=== PATIENT | female | born 1960 | race Caucasian/White ===

== ENCOUNTER → 2020-09-04 | Outpatient (CLI) | payer BC ==
--- NOTE | 2020-09-04 13:18 | REP ---
INDICATION: SOB. COMPARISON: PA and lateral chest dated 06/20/2014. TECHNIQUE: Upright PA and lateral chest. FINDINGS: There are linear densities inferiorly in the right lung as an interval change. This could represent atelectasis or chronic fibro linear scarring. The lung moncada are otherwise clear. Cardiac size is normal. The aneta, mediastinum, and skeletal structures are unremarkable. IMPRESSION: Linear densities inferiorly in the right lung as an interval change, scarring versus atelectasis. <Electronically signed by Nathanael Solares > 09/04/20 [id number]
== END ==
LOC: M WUC 12:06
PROVIDERS: ATTEND Physician Assistant
DX: J98.4 Other disorders of lung (principal)

== ENCOUNTER 2020-09-20 20:17 | Emergency (ER) | payer BC ==
[~2020-09-20] VITALS: Ht 172.7 cm; Wt 73.5 kg
[2020-09-20] MEDS ORDERED: KETOROLAC 30 MG/ML 1ML VIAL IV ONE (21:05)
[2020-09-20] MEDS ORDERED: PANTOPRAZOLE 40MG VIAL (C9113 PER 1) IV ONE (21:05)
[2020-09-20] MEDS ORDERED: NS 1,000 ML IV SCH (21:05)
[2020-09-20 21:11] LABS: BASO % 0.2 % (0.0-1.0); EOS # 0.1 10^3/uL (0.0-0.5); EOS % 0.8 % (0.0-3.0); HEMATOCRIT 45.6 % (36.0-47.0); HEMOGLOBIN 14.8 g/dl (12.0-15.5); LYMPH # 1.8 10^3/uL (1.5-5.0); MEAN CORPUSCULAR HEMOGLOBIN 31.8 pg (27.0-33.0); MEAN CORPUSCULAR HGB CONC 32.5 g/dl (32.0-36.5); MEAN CORPUSCULAR VOLUME 98.1 fl (80.0-96.0); MONO % 6.7 % (2.0-8.0); NEUTROPHILS # 11.6 10^3/uL (1.5-8.5); NEUTROPHILS % 79.8 % (36.0-66.0); PLATELET COUNT, AUTOMATED 270 10^3/uL (150-450); RED BLOOD COUNT 4.65 10^6/uL (4.00-5.40); WHITE BLOOD COUNT 14.6 10^3/uL (4.0-10.0)
--- NOTE | 2020-09-20 21:38 | REPVR ---
PROCEDURE INFORMATION: Exam: CT Abdomen And Pelvis Without Contrast Exam date and time: 09/20/2020 9:08 PM Age: 60 years old Clinical indication: Abdominal pain; Localized; Left; Additional info: R/O calc TECHNIQUE: Imaging protocol: Computed tomography of the abdomen and pelvis without contrast. Radiation optimization: All CT scans at this facility use at least one of these dose optimization techniques: automated exposure control; mA and/or kV adjustment per patient size (includes targeted exams where dose is matched to clinical indication); or iterative reconstruction. COMPARISON: No relevant prior studies available. FINDINGS: Lungs: Peripheral infiltrates in the lower lobes bilaterally. Liver: Normal. No mass. Gallbladder and bile ducts: Normal. No calcified stones. No ductal dilation. Pancreas: Normal. No ductal dilation. Spleen: Normal. No splenomegaly. Adrenal glands: Normal. No mass. Kidneys and ureters: Normal. No hydronephrosis. Stomach and bowel: Unremarkable. No obstruction. No mucosal thickening. Appendix: No evidence of appendicitis. Intraperitoneal space: Unremarkable. No free air. No significant fluid collection. Vasculature: The aortoiliac vessels demonstrate mild atherosclerotic calcification. Lymph nodes: Unremarkable. No enlarged lymph nodes. Urinary bladder: Unremarkable as visualized. Reproductive: Unremarkable as visualized. Bones/joints: Unremarkable. No acute fracture. Soft tissues: Unremarkable. Other findings: Shallow levoscoliosis. IMPRESSION: 1. Peripheral infiltrates in the lower lobes bilaterally. 2. No acute intra-abdominal findings. Electronically signed by: Juanjose Schmid On 09/20/2020 21:39:08 PM
[2020-09-20 21:39] LABS: ALBUMIN 3.8 GM/DL (3.2-5.2); ALT/SGPT 19 U/L (12-78); BILIRUBIN,DIRECT 0.2 MG/DL (0.0-0.2); BILIRUBIN,TOTAL 0.6 MG/DL (0.2-1.0); BLOOD UREA NITROGEN 9 MG/DL (7-18); CALCIUM LEVEL 9.5 MG/DL (8.5-10.1); CARBON DIOXIDE LEVEL 27 MEQ/L (21-32); CHLORIDE LEVEL 101 MEQ/L (98-107); CREATININE FOR GFR 0.72 MG/DL (0.55-1.30); GLOMERULAR FILTRATION RATE > 60.0 (>51); GLUCOSE, FASTING 111 MG/DL (70-100); LIPASE 91 U/L (73-393); POTASSIUM SERUM 3.9 MEQ/L (3.5-5.1); SODIUM LEVEL 136 MEQ/L (136-145); TOTAL PROTEIN 7.5 GM/DL (6.4-8.2)
[2020-09-20] MEDS ORDERED: MOXIFLOXACIN 400 MG TAB PO ONE (21:50)
[2020-09-20] MEDS ORDERED: MOXI1TAB PO (21:54)
[2020-09-20] MEDS ORDERED: PROAAER10 INH (21:54)
[2020-09-21] VITALS: BP 108/68
--- NOTE | 2020-09-21 04:57 | ECGEPIP ---
[facility] - ED Test Date: 2020-09-20 Pat Name: MALACHI TYSON Department: Room: - Gender: Female Lion Tamer: Leyla WORKMAN : 1960 Requested By: ORION Coy Order Number: [id number] Reading MD: Fritz Harrison Measurements Intervals [place] Rate: 85 P: 57 IL: 172 QRS: 57 QRSD: 92 T: 56 QT: 376 QTc: 447 Interpretive Statements Normal sinus rhythm Incomplete right bundle branch block BASELINE ARTIFACT AFFECTS INTERPRETATION SIMILAR TO 06/20/14 Electronically Signed on 09-21-2020 4:56:43 EDT by Fritz Harrison
== END 2020-09-21 00:20 | disposition home or self-care (01) ==
LOC: M ED 20:17
DX: J18.8 Other pneumonia, unspecified organism (principal); R94.31 Abnormal electrocardiogram [ECG] [EKG]; F17.200 Nicotine dependence, unspecified, uncomplicated; Z88.0 Allergy status to penicillin; Z79.01 Long term (current) use of anticoagulants; Z79.51 Long term (current) use of inhaled steroids; Z79.899 Other long term (current) drug therapy
CPT/HCPCS: 36415; 74176; 80048; 80076; 83690; 85025; 93005; 96361; 96374; 96375; 99285; C9113; J1885

== ENCOUNTER 2020-09-23 08:56 | Observation (INO) | payer BC ==
[~2020-09-23] VITALS: Ht 172.7 cm; Wt 74.3 kg
[~2020-09-23 08:56] MED LIST: MOXI1TAB PO; PROAAER10 INH
[2020-09-23] MEDS ORDERED: CYCL-707 PO (09:07)
[2020-09-23] MEDS ORDERED: IBUP80TA PO (09:07)
[2020-09-23] MEDS ORDERED: ACETAMINOPHEN 500 MG TAB PO ONE (09:45)
[2020-09-23] MEDS ORDERED: ALBUTEROL 90 MCG/ACT 8GM HFA INHALER INH ONE (09:45)
[2020-09-23 10:34] LABS: BASO % 0.2 % (0.0-1.0); EOS # 0.1 10^3/uL (0.0-0.5); EOS % 0.9 % (0.0-3.0); HEMATOCRIT 44.3 % (36.0-47.0); HEMOGLOBIN 14.1 g/dl (12.0-15.5); LYMPH # 1.1 10^3/uL (1.5-5.0); LYMPH % 10.8 % (24.0-44.0); MEAN CORPUSCULAR HEMOGLOBIN 31.7 pg (27.0-33.0); MEAN CORPUSCULAR HGB CONC 31.8 g/dl (32.0-36.5); MEAN CORPUSCULAR VOLUME 99.6 fl (80.0-96.0); MONO # 0.7 10^3/uL (0.0-0.8); MONO % 6.4 % (2.0-8.0); NEUTROPHILS # 8.5 10^3/uL (1.5-8.5); NEUTROPHILS % 81.4 % (36.0-66.0); PLATELET COUNT, AUTOMATED 290 10^3/uL (150-450); RED BLOOD COUNT 4.45 10^6/uL (4.00-5.40); WHITE BLOOD COUNT 10.4 10^3/uL (4.0-10.0)
[2020-09-23 10:42] LABS: INR 1.16; PROTHROMBIN TIME 15.1 SECONDS (12.5-14.3)
[2020-09-23 10:43] LABS: PARTIAL THROMBOPLASTIN TIME 36.5 SECONDS (24.2-38.5)
[2020-09-23 11:01] LABS: ALBUMIN 3.4 GM/DL (3.2-5.2); ALT/SGPT 23 U/L (12-78); BILIRUBIN,DIRECT 0.2 MG/DL (0.0-0.2); BILIRUBIN,TOTAL 0.6 MG/DL (0.2-1.0); CK-MB VALUE MASS < 1.0 NG/ML (<3.6); CPK CREATINE PHOSPHOKINASE 46 U/L (26-192); MB/CK RELATIVE INDEX 2.17 (< OR =4); NT-PRO BNP 50 PG/ML (<125); TOTAL PROTEIN 7.3 GM/DL (6.4-8.2); TROPONIN I < 0.02 NG/ML (< 0.10)
[2020-09-23] MEDS ORDERED: ISOVUE-370 76% 100ML VIAL As Ordered ONE (11:01)
--- NOTE | 2020-09-23 12:20 | REP ---
INDICATION: pneumonia, hemoptysis, cough. COMPARISON: Comparison chest x-ray September 04, 2020. TECHNIQUE: Portable upright AP chest radiograph. FINDINGS: There is blunting of the left lateral pleural angle indicating small left pleural effusion. This is a new finding compared with the September 04, 2020 study. There is platelike atelectasis again noted in the right base essentially unchanged. There is no evidence of pneumothorax. No other infiltrate is seen. Heart is not enlarged. Pulmonary vasculature is not increased.. IMPRESSION: New blunting left lateral pleural angle indicating small left pleural pleural effusion. Platelike atelectasis right base again noted.. <Electronically signed by Monster Silva > 09/23/20 [id number]
--- NOTE | 2020-09-23 12:31 | REP ---
INDICATION: pleuritic cp, h/o pneumonia, hemoptysis. COMPARISON: Comparison chest CT study February 02, 2012.. TECHNIQUE: Contrast dose: 100 ML of Isovue [address] technique: Helical scanning is acquired and overlapping 1.5 mm and contiguous 3 mm axial images are reformatted. In addition, maximum intensity projection and multiplanar re-formation images are generated in sagittal and coronal imaging projections. FINDINGS: There is good opacification of the pulmonary arterial tree. There is a branching filling defect within the lumen of the left lower lobe pulmonary arterial tree consistent with pulmonary embolism. The filling defects are seen in the right lower lobe pulmonary artery branches as well. No central embolus is appreciated. The aorta enhances homogeneously. There is no evidence of aortic dissection or aneurysm. Normal adrenal glands are observed. The visualized upper abdominal structures are unremarkable. There is no evidence of hilar or mediastinal mass or adenopathy. Lung window settings demonstrate there are emphysematous changes in the upper lobes, right more so than left. There are extensive areas of atelectasis and consolidation in the lower lobes bilaterally, left greater than right. A very small amount of left pleural fluid is visible. Lung moncada are otherwise unremarkable. No bony destructive lesion is seen. IMPRESSION: The study is positive for bilateral lower lobe pulmonary emboli of moderate size. There is a small left pleural effusion and there is bibasilar atelectasis and infiltrate in the lower lobes. Emphysematous changes are seen in the upper lung zones.. <Electronically signed by Monster Silva > 09/23/20 [id number]
[2020-09-23] MEDS ORDERED: MOXI1TAB PO (13:20)
[2020-09-23] MEDS ORDERED: ALBU8.5H INH (13:23)
[2020-09-23] MEDS ORDERED: traMADol 50 MG TAB PO ONE (15:55)
--- NOTE | 2020-09-23 16:55 | REP ---
INDICATION: LLE u/l swelling in setting of hemoptysis COMPARISON: None TECHNIQUE: Bey scale and color Doppler evaluation using linear high frequency transducer. FINDINGS: Ultrasound examination of the left lower extremity deep venous structures from the common femoral vein to the popliteal vein demonstrates normal compressibility flow and wave patterns in response to respiration and augmentation. There is no evidence for deep venous thrombosis. IMPRESSION: No evidence for deep venous thrombosis. <Electronically signed by Madi Pena > 09/23/20 [id number]
[2020-09-23 18:10] VITALS: BP 124/77
[2020-09-23 19:00] VITALS: O2SAT 94
--- NOTE | 2020-09-23 19:08 | HPEPDOC ---
[facility] Medical History & Physical Date of Admission Sep 23, 2020 Date of Service: Sep 23, 2020 Attending Physician: INDIA FAIR MD History and Physical CHIEF COMPLAINT: L back pain and blood in sputum HISTORY OF PRESENT ILLNESS: Patient is a 60 y/o F with no known medical history (Patient has not seen primary care for the past 5 years), presenting to the ED c/o L sided back pain with blood in sputum. Per patient, her symptoms first started 3 weeks ago on 09/02 when patient woke up with acute onset of R back pain upon deep breathing. Patient rated pain 9/10 and described as gripping and stabbing. She was seen in urgent care and was dx with back pain. She was treated with an NSAID shot and sent home with cyclobenzaprine and ibuprofen (800mg). Her pain persisted, prompting her to return to urgent care on 09/04, in which a CXR was performed and showed "something brewing in the right lung". She was sent home with 5 days of prednisone and f/u with PCP. Her pain resolved with treatment and patient did not follow up with PCP. However on 09/20 (last Tuesday), patient woke up with another acute onset of L sided back pain with radiation to L flank that was similar in character and severity, prompting her to visit [facility] ED night of 09/20. She had an unremarkable EKG and her CT abd pelvis showed peripheral infiltrates in the lower lobes bilaterally. She was dx with with PNA, treated with IVF, moxifloxacin, ketorolac and pantoprazole, and was discharged on albuterol inhaler and moxifloxacin 400mg QD. Patient's pain persisted and was complicated with blood in sputum (small volume on tissue paper) 5pm on 09/22. Patient woke up this morning with 10/10 L sided back pain persistent blood in sputum, prompting patient to visit ED today. Patient denied recent sick contact, weightloss, recent long distance travel, recent periods of immobility, fever, chills, N/V/D, dizziness, palpitation, abd pain and urinary symptoms, but noted chronic cough with clear sputum, decreased appetite, and wor sening WILLSON after [address] since 09/20. Patient denied SOB at rest but reported inability to take deep breaths due to pain. Patient denied family hx of stroke or clotting disorder. She reported history of 1 spontaneous in 1984 at 6 wk gestation. While in the ED, patient's Trop, proBNP, thyroid panel were negative. However, her CTA chest showed "bilateral lower lobe pulmonary emboli of moderate size with small left pleural effusion and bibasilar atelectasis and infiltrate in the lower lobes. Emphysematous changes are seen in the upper lung zones." PAST MEDICAL HISTORY: 1. None reported PAST SURGICAL HISTORY: 1. L elbow surgery 2. R wrist surgery 3. Tubal ligation in 1993 4. Tonsillectomy- during childhood 5. 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 Tobacco use: Recently quit smoking due to bloody sputum on 09/22/2020, smoked cigarettes for 42 years with 1.5 ppd ETOH: Has not had a drink since 09/02, used to drink 4-5 12oz beer nightly Illicit drug use: None IV drug use: None FAMILY HISTORY: Father: Alive, CAD (s/p CABG and stent) Mother: Alive, COPD Siblings: 1 brother in good health Children: 1 son age 33 and 1 daughter age 26, both in good health ALLERGIES: Please see below. REVIEW OF SYSTEMS: CONSTITUTIONAL: Denies chills, fever, weakness, fatigue, unexpected weight change, but noted decreased appetite HEENT: Denies headaches, dizziness, vision changes, hearing changes or throat pain. CARDIOVASCULAR: Denies chest pain, palpitations, dyspnea on exertion, edema RESPIRATORY: Denies wheezing, hemoptysis but noted chronic cough, blood in sputum and dyspnea on exertion GASTROINTESTINAL: Denies nausea, vomiting, abdominal pain, diarrhea, constipation, melena, hematochezia GENITAOURINARY: Denies dysuria, hematuria, urinary frequency, incontinence or retention. SKIN: Denies skin changes, rash, lesions, jaundice, bruising MUSCULOSKELETAL: Denies weakness, muscle or joint pain. NEUROLOGICAL: Denies focal weakness, numbness, tingling, change in Speech HEMATOLOGICAL: Denies bruising, excessive bleeding, petechiae HOME MEDICATIONS: Please see below. PHYSICAL EXAMINATION: VITAL SIGNS: See below GENERAL APPEARANCE: Revealed 60 y/o F laying on ED cot with head of bed elevated, alert & oriented x3, in no acute distress. HEENT Exam: Normocephalic and atraumatic, PERRLA, conjunctiva & lids normal, EOMI, without sclera icteric, mucous membr. moist/pink, pharynx normal, nares patent. NECK: Supple without lymphadenopathy, JVD, thyromegaly LUNGS: Clear to auscultation bilaterally with full breath sounds without rales, wheezing. Faint bibasilar crackles noted. CARDIOVASCULAR: Regular rate and rhythm, distant heart sound with normal S1 & S2 without gallops, murmurs, rubs. ABDOMEN: Soft, non-tender, non-distended with normal bowel sounds. No masses or ecchymosis or hepatosplenomegaly. EXTREMITIES: 2+ pulses in all extremities. No clubbing, cyanosis, tenderness. 1+ pitting edema noted in LLE. SKIN: Normal turgor and temperature. No rash, lesion MUSCULOSKELETAL: Strength +5/5 in all extremities without tenderness. No back tenderness noted. NEUROLOGICAL: Normal gait and speech with intact sensation, cranial nerves III- XII normal, reflexes 2+, Babinski sign negative. PSYCHIATRIC: Normal mood and affect LABORATORY DATA: See below. IMAGIN. 09/23/2020 CT angio chest reported as: "The study is positive for bilateral lower lobe pulmonary emboli of moderate size. There is a small left pleural effusion and there is bibasilar atelectasis and infiltrate in the lower lobes. Emphysematous changes are seen in the upper lung zones." 2. 09/23/2020 portable chest CR reported as "New blunting left lateral pleural angle indicating small left pleural pleural effusion. Platelike atelectasis right base again noted." . 09/23/2020 duplex US Unilat left lower veins reported as "No evidence for deep venous thrombosis." MICROBIOLOGY: Please see below. ASSESSMENT: Patient is a 60 y/o F with no known medical history (Patient has not seen primary care for the past 5 years), presenting to the ED c/o L sided back pain with blood in sputum. While in the ED, patient's Trop, proBNP, thyroid panel were negative. However, her CTA chest showed "bilateral lower lobe pulmonary emboli of moderate size with small left pleural effusion and bibasilar atelectasis and infiltrate in the lower lobes. Emphysematous changes are seen in the upper lung zones." PO eliquis started at 10mg bid. Etiology of bilateral PE unclear and will require outpatient workup. Anticipate discharge tomorrow if pain is controlled. PLAN: 1. Bilateral PE, unprovoked - Etiology unclear - CTA chest showed "bilateral lower lobe pulmonary emboli of moderate size with small left pleural effusion and bibasilar atelectasis and infiltrate in the lower lobes. Emphysematous changes are seen in the upper lung zones." - hemodynamically stable - Start PO Eliquis 10mg BID for 7 days followed by 5mg bid afterwards - Pain control with Percocet - Cont Incentive Spirometry - Patient will require primary care screening for cancer as patient has not had primary care for the past 5 years - coagulopathy panel ordered and pending - Start pantoprazole for GI prophylaxis - LLE doppler ordered for swelling, results negative for DVT Hemoptysis - Reported small streaking - Will follow H&H trend 2. Bilateral PNA - CTA showed bibasilar atelectasis and infiltrate in the lower lobes - Patient currently on day 4 of moxifloxacin PO 400mg, cont moxifloxacin 3. Nicotine dependence - Patient quit smoking yesterday with 42 years of smoking 1.5 ppd. 4. DVT Prophylaxis: Patient on Eliquis for bilateral PE Disposition: Anticipate discharge tomorrow on Eliquis assuming patient's pain is controlled Code status: Full code Vital Signs Vital Signs Date Time Temp Pulse Resp B/P (MAP) Pulse Ox O2 Delivery O2 Flow Rate FiO2 09/23/20 17:06 16 09/23/20 17:01 98.6 88 95/64 (74) 95 Room Air Laboratory Data Labs 24H Laboratory Tests 2 09/23/20 10:20: Immature Granulocyte % (Auto) 0.3, Neutrophils (%) (Auto) 81.4H, Lymphocytes (%) (Auto) 10.8L, Monocytes (%) (Auto) 6.4, Eosinophils (%) (Auto) 0.9, Basophils (%) (Auto) 0.2, Neutrophils # (Auto) 8.5, Lymphocytes # (Auto) 1.1L, Monocytes # (Auto) 0.7, Eosinophils # (Auto) 0.1, Basophils # (Auto) 0.0, Nucleated Red Bloo d Cells % (auto) 0.0, Prothrombin Time 15.1H, Prothromb Time International Ratio 1.16, Activated Partial Thromboplast Time 36.5, Lactic Acid Level 0.9, Total Bilirubin 0.6, Direct Bilirubin 0.2, Aspartate Amino Transf (AST/SGOT) 18, Alanine Aminotransferase (ALT/SGPT) 23, Alkaline Phosphatase 152H, Total Creatine Kinase 46, Creatine Kinase MB < 1.0, Creatine Kinase MB Relative Index 2.17, Troponin I < 0.02, IK-Hqv-I-Type Natriuretic Peptide 50, Total Protein 7.3, Albumin 3.4, Albumin/Globulin Ratio 0.9L, Thyroid Stimulating Hormone (TSH) 1.820, Thyroxine (T4) 8.0 09/23/20 10:21: POC Glucose (Misc Panel) 112H, POC Sodium (Misc Panel) 138, POC Potassium (Misc Panel) 3.8, POC Chloride (Misc Panel) 99, POC Total CO2 (Misc Panel) 29.0H, POC Blood Urea Nitrogen (Misc Panel 8, POC Ionized Calcium (Misc Panel) 4.6, POC Creatinine (Misc Panel) 0.7, POC Hematocrit (Misc Panel) 45.0 09/23/20 15:09: TK-Ywa-U-Type Natriuretic Peptide 49 09/23/20 15:59: CBC/BMP Laboratory Tests 09/23/20 10:20 Microbiology Microbiology 09/23/20 Respiratory Virus Panel (PCR) ([facility]) - Final, Complete Home Medications Scheduled Cyclobenzaprine HCl (Cyclobenzaprine HCl) 10 Mg Tablet, 10 MG PO Q8H Ibuprofen (Ibuprofen) 800 Mg Tablet, 800 MG PO Q6H Moxifloxacin HCl (Moxifloxacin HCl) 400 Mg Tablet, 400 MG PO DAILY STARTED 09/21/20 FOR 10 DAYS Scheduled PRN Albuterol Sulfate (Albuterol Sulfate Hfa) 8.5 Gm Hfa.aer.ad, 2 PUFFS INH Q4-6HP PRN for SHORTNESS OF BREATH Allergies Coded Allergies: Penicillins (Verified Allergy, Unknown, 09/20/20) erythromycin base (Verified Allergy, Unknown, 09/20/20) A-FIB/CHADSVASC A-FIB History Current/History of A-Fib/PAF?: No Current PO Anticoag Therapy: No GME ATTESTATION GME ATTESTATION My faculty preceptor for this patient encounter was physically present during the encounter and was fully available. All aspects of the patient interview, examination, medical decision making process, and medical care plan development were reviewed and approved by the faculty preceptor. The faculty preceptor is aware and concurs with the plan as stated in the body of this note and will attest to such by his/her cosignature. ATTENDING NOTE I, India Fair, have independently examined this patient and performed my own physical exam, as well as reviewed the documentation and edited where necessary. I have discussed in detail with the resident / student the findings and plan of treatment as documented by the resident / student and edited their note. I agree with their findings and treatment plan and have edited their documentation. I will continue to follow the patient during this hospital stay. ARLENE LEIGH OMS-3 Sep 23, 2020 19:08 INDIA FAIR MD Sep 24, 2020 07:04
[2020-09-23 19:21] VITALS: BP 114/63
[2020-09-23 20:00] VITALS: O2SAT 93
[2020-09-23] MEDS: APIXABAN 5 MG TAB (ELIQUIS) PO SCH (20:09)
[2020-09-23] MEDS: ACETAMINOPHEN TAB 650MG DOSE (2X325MG) PO PRN (20:46)
[2020-09-23 21:00] VITALS: O2SAT 92
[2020-09-23 22:00] VITALS: O2SAT 90
[2020-09-23] MEDS: traMADol 50 MG TAB PO PRN (22:37)
[2020-09-24] VITALS: BP 98/60
[2020-09-24 00:20] VITALS: O2SAT 93
[2020-09-24] MEDS: ACETAMINOPHEN TAB 650MG DOSE (2X325MG) PO PRN (01:11)
[2020-09-24 04:00] VITALS: BP 97/57
[2020-09-24 04:50] VITALS: O2SAT 92
[2020-09-24] MEDS: traMADol 50 MG TAB PO PRN (05:06)
[2020-09-24] MEDS ORDERED: MOXIFLOXACIN 400 MG TAB PO SCH (06:00)
[2020-09-24 06:09] LABS: HEMATOCRIT 39.4 % (36.0-47.0); HEMOGLOBIN 12.7 g/dl (12.0-15.5); MEAN CORPUSCULAR HEMOGLOBIN 31.8 pg (27.0-33.0); MEAN CORPUSCULAR HGB CONC 32.2 g/dl (32.0-36.5); MEAN CORPUSCULAR VOLUME 98.5 fl (80.0-96.0); PLATELET COUNT, AUTOMATED 272 10^3/uL (150-450); WHITE BLOOD COUNT 6.7 10^3/uL (4.0-10.0)
[2020-09-24 06:38] LABS: ALBUMIN 2.6 GM/DL (3.2-5.2); ALT/SGPT 39 U/L (12-78); BILIRUBIN,TOTAL 0.3 MG/DL (0.2-1.0); BLOOD UREA NITROGEN 12 MG/DL (7-18); CALCIUM LEVEL 8.2 MG/DL (8.5-10.1); CARBON DIOXIDE LEVEL 29 MEQ/L (21-32); CHLORIDE LEVEL 101 MEQ/L (98-107); CREATININE FOR GFR 0.57 MG/DL (0.55-1.30); GLOMERULAR FILTRATION RATE > 60.0 (>51); GLUCOSE, FASTING 93 MG/DL (70-100); POTASSIUM SERUM 3.7 MEQ/L (3.5-5.1); SODIUM LEVEL 136 MEQ/L (136-145)
[2020-09-24 07:30] VITALS: BP 104/54
[2020-09-24] MEDS ORDERED: PANTOPRAZOLE 20 MG TAB PO SCH (09:00)
[2020-09-24] MEDS ORDERED: TRAM50TA2 PO (09:23)
[2020-09-24] MEDS ORDERED: ELIQ5TAB PO ×2 (09:23→10:21)
[2020-09-24] MEDS: APIXABAN 5 MG TAB (ELIQUIS) PO SCH (09:38)
[2020-09-24 11:19] VITALS: BP 107/59
[2020-09-24 12:35] LABS: DRVV SCREEN 62.7 SEC
[2020-09-24 12:36] LABS: PTT LUPUS TYPE ANTICOAG SCREEN 1.5 (0-1.2)
[2020-09-24 12:43] LABS: DRVV CONFIRM 46.9 SEC; LUPUS CONFIRM RATIO 1.2
[2020-09-24 12:44] LABS: NORMALIZED RATIO 1.25 (0.00-1.20)
--- NOTE | 2020-09-24 17:07 | DS.PDOC ---
Discharge Summary General Date of Admission Sep 23, 2020 at 08:57 Date of Discharge 09/24/2020 Attending Physician: INDIA BECERRIL MD Discharge Summary PROCEDURES PERFORMED DURING STAY: [None]. ADMITTING DIAGNOSES: 1. Bilateral PE, unprovoked 2. Hemoptysis 3. Bilateral PNA 4. Nicotine dependence DISCHARGE DIAGNOSES: 1. Bilateral PE, unprovoked 2. Hemoptysis 3. Bilateral PNA 4. Nicotine dependence COMPLICATIONS/CHIEF COMPLAINT: Coughing Up Blood, Pneumonia. HISTORY OF PRESENT ILLNESS: Patient is a 60 y/o F with no known medical history (Patient has not seen primary care for the past 5 years), presenting to the ED c/o L sided back pain with blood in sputum. Per patient, her symptoms first started 3 weeks ago on 09/02 when patient woke up with acute onset of R back pain upon deep breathing. Patient rated pain 9/10 and described as gripping and stabbing. She was seen in urgent care and was dx with back pain. She was treated with an NSAID shot and sent home with cyclobenzaprine and ibuprofen (800mg). Her pain persisted, prompting her to return to urgent care on 09/04, in which a CXR was performed and showed "something brewing in the right lung". She was sent home with 5 days of prednisone and f/u with PCP. Her pain resolved with treatment and patient did not follow up with PCP. However on 09/20 (last Tuesday), patient woke up with another acute onset of L sided back pain with radiation to L flank that was similar in character and severity, prompting her to visit [facility] ED night of 09/20. She had an unremarkable EKG and her CT abd pelvis showed peripheral infiltrates in the lower lobes bilaterally. She was dx with with PNA, treated with IVF, moxifloxacin, ketorolac and pantoprazole, and was discharged on albuterol inhaler and moxifloxacin 400mg QD. Patient's pain persisted and was complicated with blood in sputum (small volume on tissue paper) 5pm on 09/22. Patient woke up morning of 09/23 with 10/10 L sided back pain persistent blood in sputum, prompting patient to visit ED. Patient denied recent sick contact, weight loss, recent long distance travel, recent periods of immobility, fever, chills, N/V/D, dizziness, palpitation, abd pain and urinary symptoms, but noted chronic cough with clear sputum, decreased appetite, and worsening WILLSON after [address] since 09/20. Patient denied SOB at rest but reported inability to take deep breaths due to pain. Patient denied family hx of stroke or clotting disorder. She reported history of 1 spontaneous in 1984 at 6 wk gestation. While in the ED, patient's Trop, proBNP, thyroid panel were negative. However, her CTA chest showed "bilateral lower lobe pulmonary emboli of moderate size w ith small left pleural effusion and bibasilar atelectasis and infiltrate in the lower lobes. Emphysematous changes are seen in the upper lung zones." HOSPITAL COURSE: Upon admission, patient was started on Eliquis 10mg BID for her bilateral PE with plan to continue 10mg for 7 days followed by 5mg bid afterwards. LLE doppler was performed due to L leg swelling and it returned negative for DVT. Etiology for her bilateral PE remained unclear and will require outpatient workup for coagulopathies (coagulopathy panel ordered and pending). She was started on tramadol and tylenol for pain control. Given the combination of Eliquis and tramadol, patient was also started on pantoprazole for GI protection. 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 She denied shortness of breath and maintained good saturation for the rest of the day. Patient was started on a 10 day course of PO moxifloxacin 400mg QD on 09/20 for B/L PNA prior to hospitalization and was continued during her stay. On the day of discharge, patient's pain was controlled with tramadol. She still had some "gripping" pain in her left flank to back area rated 4/10 upon deep breathing but was tolerable and improved with pain medications. Incentive spirometry was given to patient. Patient denied fever, chills, CP, SOB, N/V/D, abd pain and urinary symptoms but continued to have blood tinged sputum. However her H&H remained stable during her hospitalization. She was discharged home with Eliquis, 5 more days of Moxifloxacin, tramadol and PPI. DISCHARGE MEDICATIONS: Please see below. ALLERGIES: Please see below. PHYSICAL EXAMINATION ON DISCHARGE: VITAL SIGNS: See below GENERAL APPEARANCE: Revealed 60 y/o F in semi-baeza position on hospital bed, alert & oriented x3, in no acute distress. HEENT Exam: Normocephalic and atraumatic, PERRLA, conjunctiva & lids normal, EOMI, without sclera icteric, mucous membr. moist/pink, pharynx normal, nares patent. NECK: Supple without lymphadenopathy, JVD, thyromegaly LUNGS: Fine inspiratory crackle noted in right lung base and subtle inspiratory rhonchi in bilateral mid lung moncada. No wheezing. Other lung [place]cada clear to auscultation without adventitious sounds. CARDIOVASCULAR: Regular rate and rhythm, distant heart sound with normal S1 & S2 without gallops, murmurs, rubs. ABDOMEN: Soft, non-tender, non-distended with normal bowel sounds. No masses or ecchymosis or hepatosplenomegaly. EXTREMITIES: 2+ pulses in all extremities. No clubbing, cyanosis, tenderness. 1+ pitting edema noted in LLE. SKIN: Normal turgor and temperature. No rash, lesion MUSCULOSKELETAL: Strength +5/5 in all extremities without tenderness. No back tenderness noted. NEUROLOGICAL: Normal gait and speech with intact sensation, cranial nerves III- XII normal. PSYCHIATRIC: Normal mood and affect LABORATORY DATA: Please see below. IMAGIN. 09/23/2020 CT angio chest reported as: "The study is positive for bilateral lower lobe pulmonary emboli of moderate size. There is a small left pleural effusion and there is bibasilar atelectasis and infiltrate in the lower lobes. Emphysematous changes are seen in the upper lung zones." 2. 09/23/2020 portable chest CR reported as "New blunting left lateral pleural angle indicating small left pleural pleural effusion. Platelike atelectasis right base again noted." 3. 09/23/2020 duplex US Unilat left lower veins reported as "No evidence for deep venous thrombosis." PROGNOSIS: Good ACTIVITY: As tolerated DIET: Regular DISPOSITION: Home DISCHARGE INSTRUCTIONS: 1. Please follow up with PCP within 7 days. 2. Please continue to take Eliquis 10mg twice daily until evening of 09/30 (tuesday), then lower your dose of Eliquis to 5mg twice daily and discuss cont inuation of therapy with your PCP 3. Please continue to take 400mg Moxifloxacin daily for 5 more days 4. Please start taking pantoprazole 20mg daily 5. Please start taking tramadol 50mg every 6 hours as needed for moderate pain and tylenol 650mg every 4 hours as needed for mild pain 6. Please return to the ED if your symptoms worsen or if you develop new symptoms. ITEMS TO FOLLOWUP ON ON OUTPATIENT: 1. Coagulopathy panel: Hexagonal phospholipid, Protein C Activity, Protein S Activity, Antithrombin III antigen, Antithrombin III activity, factor V Leiden, Anti-Cardiolipin IgG,IgA,IgM antibodies, factor II mutation. DISCHARGE CONDITION: Stable TIME SPENT ON DISCHARGE: 35 minutes. Vital Signs/I&Os Vital Signs Date Time Temp Pulse Resp B/P (MAP) Pulse Ox O2 Delivery O2 Flow Rate FiO2 09/24/20 07:30 98.0 75 18 104/54 (71) 92 09/24/20 07:01 Nasal Cannula 09/24/20 04:00 1.0 I&O- Last 24 Hours up to 6 AM 09/24/20 06:00 Intake Total 200 ml Balance 200 ml Laboratory Data Labs 24H Laboratory Tests 2 09/23/20 10:20: Immature Granulocyte % (Auto) 0.3, Neutrophils (%) (Auto) 81.4H, Lymphocytes (%) (Auto) 10.8L, Monocytes (%) (Auto) 6.4, Eosinophils (%) (Auto) 0.9, Basophils (%) (Auto) 0.2, Neutrophils # (Auto) 8.5, Lymphocytes # (Auto) 1.1L, Monocytes # (Auto) 0.7, Eosinophils # (Auto) 0.1, Basophils # (Auto) 0.0, Nucleated Red Blood Cells % (auto) 0.0, Prothrombin Time 15.1H, Prothromb Time International Ratio 1.16, Activated Partial Thromboplast Time 36.5, Lactic Acid Level 0.9, Total Bilirubin 0.6, Direct Bilirubin 0.2, Aspartate Amino Transf (AST/SGOT) 18, Alanine Aminotransferase (ALT/SGPT) 23, Alkaline Phosphatase 152H, Total Creatine Kinase 46, Creatine Kinase MB < 1.0, Creatine Kinase MB Relative Index 2.17, Troponin I < 0.02, PJ-Ehm-V-Type Natriuretic Peptide 50, Total Protein 7.3, Albumin 3.4, Albumin/Globulin Ratio 0.9L, Thyroid Stimulating Hormone (TSH) 1.820, Thyroxine (T4) 8.0 09/23/20 10:21: POC Glucose (Misc Panel) 112H, POC Sodium (Misc Panel) 138, POC Potassium (Misc Panel) 3.8, POC Chloride (Misc Panel) 99, POC Total CO2 (Misc Panel) 29.0H, POC Blood Urea Nitrogen (Misc Panel 8, POC Ionized Calcium (Misc Panel) 4.6, POC Creatinine (Misc Panel) 0.7, POC Hematocrit (Misc Panel) 45.0 09/23/20 15:09: BU-Nym-L-Type Natriuretic Peptide 49 09/23/20 15:59: 09/24/20 05:15: Nucleated Red Blood Cells % (auto) 0.0, Anion Gap 6L, Glomerular Filtration Rate > 60.0, Calcium Level 8.2L, Total Bilirubin 0.3, Aspartate Amino Transf (AST/ SGOT) 35, Alanine Aminotransferase (ALT/SGPT) 39, Alkaline Phosphatase 179H, Total Protein 6.0L, Albumin 2.6#L, Albumin/Globulin Ratio 0.8L CBC/BMP Laboratory Tests 09/23/20 10:20 09/24/20 05:15 Microbiology Microbiology 09/23/20 Respiratory Virus Panel (PCR) ([facility]) - Final, Complete Discharge Medications Scheduled Apixaban (Eliquis) 5 Mg Tablet, 5 MG PO ASDIRECTED 10 MG (2 TABS) TWICE PER DAY FOR 7 DAYS THEN 5 MG (1 TAB) TWICE PER DAY /// USE STARTER PACK IF AVAILABLE Moxifloxacin HCl (Moxifloxacin HCl) 400 Mg Tablet, 400 MG PO DAILY, (Reported) STARTED 09/21/20 FOR 10 DAYS Scheduled PRN Albuterol Sulfate (Albuterol Sulfate Hfa) 8.5 Gm Hfa.aer.ad, 2 PUFFS INH Q4-6HP PRN for SHORTNESS OF BREATH, (Reported) Tramadol HCl (Tramadol HCl) 50 Mg Tablet, 50 MG PO Q6HP PRN for MODERATE PAIN (PS 5-7) Allergies Coded Allergies: Penicillins (Verified Allergy, Unknown, 09/20/20) erythromycin base (Verified Allergy, Unknown, 09/20/20) GME ATTESTATION GME ATTESTATION My faculty preceptor for this patient encounter was physically present during the encounter and was fully available. All aspects of the patient interview, examination, medical decision making process, and medical care plan development were reviewed and approved by the faculty preceptor. The faculty preceptor is aware and concurs with the plan as stated in the body of this note and will attest to such by his/her cosignature. ATTENDING NOTE I, India Becerril, have independently examined this patient and performed my own physical exam, as well as reviewed the documentation and edited where necessary. I have discussed in detail with the resident / student the findings and plan of treatment as documented by the resident / student and edited their note. I agree with their findings and treatment plan and have edited their documentation. I will continue to follow the patient during this hospital stay. Time spent on discharge 20 minutes ARLENE LEIGH OMS-3 Sep 24, 2020 09:41 INDIA BECERRIL MD Sep 24, 2020 17:15
--- NOTE | 2020-09-25 12:20 | ECGEPIP ---
[facility] - ED Test Date: 2020-09-23 Pat Name: MALACHI TYSON Department: Room: Gender: Female Primary Care Nurse: ED : 1960 Requested By: FREDDIE Bailey PA-C Order Number: [id number] Reading MD: Camille Oliveira Measurements Intervals [place] Rate: 81 P: 60 NH: 170 QRS: 54 QRSD: 98 T: 54 QT: 374 QTc: 434 Interpretive Statements Normal sinus rhythm Incomplete right bundle branch block similar 09/20/20 Electronically Signed on 09-25-2020 12:19:41 EDT by Camille Oliveira
[2020-09-26 15:14] LABS: HEXAGONAL PHASE PHOSPHOLIPID 0 sec (0-11)
[2020-09-30 12:08] LABS: ANTI THROMBIN 3 ANTIGEN IMMUNO 72 % (72-124); ANTI THROMBIN 3 FUNCT ACTIVITY 99 % (75-135); CARDIOLIPIN IGA ANTIBODY <9 APL U/mL (0-11); CARDIOLIPIN IGG ANTIBODY <9 GPL U/mL (0-14); CARDIOLIPIN IGM ANTIBODY <9 MPL U/mL (0-12); PHOSPHOLIPIDS LEVEL 933 mg/dL (150-250); PROTEIN C FUNCTIONAL ACTIVITY 153 % (73-180); PROTEIN S FUNCTIONAL ACTIVITY 83 % (63-140)
== END 2020-09-24 14:55 | disposition home health service (06) ==
LOC: M ED 08:56 → M ED INP 08:57 → ENRESERV 16:35 → M PCU 18:10
PROVIDERS: ADMIT Internal Medicine; ATTEND Internal Medicine
DX: I26.99 Other pulmonary embolism without acute cor pulmonale (principal); R04.2 Hemoptysis; J18.9 Pneumonia, unspecified organism; J44.9 Chronic obstructive pulmonary disease, unspecified; J45.909 Unspecified asthma, uncomplicated; F17.218 Nicotine dependence, cigarettes, with other nicotine-induced disorders; Z79.899 Other long term (current) drug therapy; Z79.01 Long term (current) use of anticoagulants; Z88.0 Allergy status to penicillin; Z88.1 Allergy status to other antibiotic agents
CPT/HCPCS: 36415; 71045; 71275; 80047; 80053; 80076; 81240; 82550; 82553; 83605; 83880; 84311; 84436; 84443; 84484; 85025; 85027; 85300; 85301; 85303; 85305; 85598; 85610; 85613; 85730; 86147; 87798; 93005; 93041; 93971; 94640; 94664; 94760; 99285; Q9967

== ENCOUNTER → 2021-01-23 | Outpatient (CLI) | payer BC ==
[~2021-01-23] MED LIST changes: +ALBU8.5H INH; +CYCL-707 PO; +ELIQ5TAB PO; +IBUP80TA PO; +TRAM50TA2 PO
--- NOTE | 2021-01-23 15:13 | REP ---
INDICATION: ABNORMAL FINDING OF LUNG FIELD COMPARISON: 09/23/2020 TECHNIQUE: Axial noncontrast images from the thoracic inlet to the upper abdomen with coronal and sagittal reformations. This CT examination was performed using the following dose reduction techniques: Automated exposure control, adjustment of mA and/or kv according to the patient's size, and use of iterative reconstruction technique. FINDINGS: Chronic emphysematous disease with minimal scattered chronic scarring primarily noted in the left base as well as the bilateral apices and right base are identified. No acute consolidation, effusion, or pneumothorax. Previously noted multifocal infiltrates have completely resolved. Mediastinum demonstrates stable thoracic aorta, pulmonary vasculature, and heart/pericardium. No significant adenopathy. Tracheobronchial tree is patent. Surrounding musculoskeletal structures are intact. IMPRESSION: 1. No acute mediastinal or pleuroparenchymal process appreciated. Previously noted multifocal pneumonia has resolved. 2. Stable chronic COPD and scattered linear scarring. <Electronically signed by Madi Pena > 01/23/21 [id number]
== END ==
LOC: M PLAIMG 12:33
PROVIDERS: ATTEND Nurse Practitioner Adult Health
DX: R91.8 Other nonspecific abnormal finding of lung field (principal)

== ENCOUNTER → 2021-01-23 | Outpatient (CLI) | payer BC ==
[2021-01-23 15:19] LABS: BASO % 0.3 % (0.0-1.0); EOS # 0.2 10^3/uL (0.0-0.5); EOS % 1.8 % (0.0-3.0); HEMATOCRIT 47.4 % (36.0-47.0); HEMOGLOBIN 15.7 g/dl (12.0-15.5); LYMPH # 2.8 10^3/uL (1.5-5.0); LYMPH % 27.4 % (24.0-44.0); MEAN CORPUSCULAR HEMOGLOBIN 32.4 pg (27.0-33.0); MEAN CORPUSCULAR HGB CONC 33.1 g/dl (32.0-36.5); MEAN CORPUSCULAR VOLUME 97.7 fl (80.0-96.0); MONO # 0.8 10^3/uL (0.0-0.8); MONO % 7.7 % (2.0-8.0); NEUTROPHILS # 6.4 10^3/uL (1.5-8.5); NEUTROPHILS % 62.4 % (36.0-66.0); PLATELET COUNT, AUTOMATED 261 10^3/uL (150-450); RED BLOOD COUNT 4.85 10^6/uL (4.00-5.40); WHITE BLOOD COUNT 10.2 10^3/uL (4.0-10.0)
[2021-01-23 15:38] LABS: HEMOGLOBIN A1c 5.5 %
[2021-01-23 15:45] LABS: ALBUMIN 4.1 GM/DL (3.2-5.2); ALT/SGPT 27 U/L (12-78); BILIRUBIN,TOTAL 0.3 MG/DL (0.2-1.0); BLOOD UREA NITROGEN 13 MG/DL (7-18); CALCIUM LEVEL 9.6 MG/DL (8.5-10.1); CARBON DIOXIDE LEVEL 31 MEQ/L (21-32); CHLORIDE LEVEL 104 MEQ/L (98-107); CHOLESTEROL LEVEL 216 MG/DL (<200); CREATININE FOR GFR 0.78 MG/DL (0.55-1.30); GLOMERULAR FILTRATION RATE > 60.0 (>51); GLUCOSE, FASTING 85 MG/DL (70-100); HDL CHOLESTEROL 50 MG/DL (>40); LDL CHOLESTEROL 105 MG/DL (<100); NON-HDL-C 166 MG/DL; POTASSIUM SERUM 4.2 MEQ/L (3.5-5.1); SODIUM LEVEL 140 MEQ/L (136-145); TRIGLYCERIDES LEVEL 303 MG/DL (<150)
== END ==
LOC: M PLALAB 13:03
PROVIDERS: ATTEND Family Medicine
DX: Z13.220 Encounter for screening for lipoid disorders (principal); Z13.1 Encounter for screening for diabetes mellitus

== ENCOUNTER 2022-10-20 13:18 | Observation (INO) | payer BC ==
[~2022-10-20] VITALS: Ht 172.7 cm; Wt 71.6 kg
[2022-10-20 14:37] LABS: BASO % 0.4 % (0.0-1.0); EOS # 0.1 10^3/uL (0.0-0.5); EOS % 1.3 % (0.0-3.0); HEMATOCRIT 48.5 % (36.0-47.0); HEMOGLOBIN 16.4 g/dl (12.0-15.5); LYMPH # 2.8 10^3/uL (1.5-5.0); LYMPH % 29.9 % (24.0-44.0); MEAN CORPUSCULAR HGB CONC 33.8 g/dl (32.0-36.5); MEAN CORPUSCULAR VOLUME 97.6 fl (80.0-96.0); MONO # 0.7 10^3/uL (0.0-0.8); MONO % 7.3 % (2.0-8.0); NEUTROPHILS # 5.7 10^3/uL (1.5-8.5); NEUTROPHILS % 60.9 % (36.0-66.0); PLATELET COUNT, AUTOMATED 276 10^3/uL (150-450); RED BLOOD COUNT 4.97 10^6/uL (4.00-5.40); WHITE BLOOD COUNT 9.3 10^3/uL (4.0-10.0)
[2022-10-20 14:54] LABS: CK-MB VALUE MASS < 1.0 NG/ML (<3.6)
[2022-10-20 14:56] LABS: BLOOD UREA NITROGEN 12 MG/DL (9-23); CALCIUM LEVEL 9.2 MG/DL (8.3-10.6); CARBON DIOXIDE LEVEL 26 MMOL/L (20-31); CHLORIDE LEVEL 105 MMOL/L (98-107); CREATININE FOR GFR 0.72 MG/DL (0.55-1.30); GLOMERULAR FILTRATION RATE > 60.0 (>45); GLUCOSE, FASTING 104 MG/DL (74-106); SODIUM LEVEL 140 MMOL/L (136-145)
[2022-10-20 14:58] LABS: CPK CREATINE PHOSPHOKINASE 128 U/L (34-145); MB/CK RELATIVE INDEX 0.78 (< OR =4)
[2022-10-20 15:04] LABS: RSV AMPLIFICATION NEGATIVE (NEGATIVE)
[2022-10-20] MEDS ORDERED: ISOVUE-370 76% 100ML VIAL As Ordered ONE (15:08)
[2022-10-20] MEDS ORDERED: ELIQ2.5T PO (17:21)
[2022-10-20] MEDS ORDERED: HOME MED LIST COMPLETE! XX SCH (17:25)
[2022-10-20] MEDS ORDERED: ALBUTEROL 90 MCG/ACT 8GM HFA INHALER INH PRN (17:25)
[2022-10-20] MEDS ORDERED: ACETAMINOPHEN TAB 650MG DOSE (2X325MG) PO PRN (17:25)
[2022-10-20] MEDS ORDERED: LORazepam 2 MG TAB PO PRN (17:40)
[2022-10-20 17:42] LABS: INR 1.03; PROTHROMBIN TIME 13.7 SECONDS (12.5-14.5)
[2022-10-20 17:43] LABS: PARTIAL THROMBOPLASTIN TIME 30.1 SECONDS (24.8-34.2)
[2022-10-20] MEDS: THIAMINE 100 MG TAB PO SCH (17:50)
[2022-10-20 21:00] VITALS: BP 146/74
[2022-10-20 22:00] VITALS: BP 146/74
[2022-10-21] MEDS ORDERED: APIXABAN 2.5 MG TAB (ELIQUIS) PO ONE
[2022-10-21 06:00] VITALS: BP 104/70
[2022-10-21 06:14] LABS: HEMATOCRIT 46.1 % (36.0-47.0); HEMOGLOBIN 15.2 g/dl (12.0-15.5); MEAN CORPUSCULAR HEMOGLOBIN 32.1 pg (27.0-33.0); MEAN CORPUSCULAR VOLUME 97.5 fl (80.0-96.0); PLATELET COUNT, AUTOMATED 261 10^3/uL (150-450); RED BLOOD COUNT 4.73 10^6/uL (4.00-5.40); WHITE BLOOD COUNT 9.3 10^3/uL (4.0-10.0)
[2022-10-21 06:48] LABS: ALBUMIN 3.7 G/DL (3.2-5.2); ALKALINE PHOSPHATASE 80 U/L (46-116); ALT/SGPT 16 U/L (7.0-40); AST/SGOT 19 U/L (<34); BILIRUBIN,TOTAL 0.7 MG/DL (0.3-1.2); BLOOD UREA NITROGEN 10 MG/DL (9-23); CALCIUM LEVEL 9.3 MG/DL (8.3-10.6); CARBON DIOXIDE LEVEL 25 MMOL/L (20-31); CHLORIDE LEVEL 104 MMOL/L (98-107); CREATININE FOR GFR 0.75 MG/DL (0.55-1.30); GLOMERULAR FILTRATION RATE > 60.0 (>45); GLUCOSE, FASTING 105 MG/DL (74-106); SODIUM LEVEL 136 MMOL/L (136-145); TOTAL PROTEIN 6.3 G/DL (5.7-8.2)
[2022-10-21] MEDS ORDERED: ACET1TAB55 PO (08:23)
[2022-10-21] MEDS ORDERED: MULTIVITAMINS/MINERALS THERAP 1 TAB PO SCH (09:00)
[2022-10-21] MEDS ORDERED: APIXABAN 2.5 MG TAB (ELIQUIS) PO SCH (09:00)
[2022-10-21] MEDS ORDERED: FOLIC ACID 1MG TAB PO SCH (09:00)
[2022-10-21] MEDS ORDERED: NICOTINE 21MG/24HR 1 EA TRANSDERMAL TD SCH (09:00)
[2022-10-21] MEDS: THIAMINE 100 MG TAB PO SCH (09:06)
[2022-10-21 14:00] VITALS: BP 120/61
== END 2022-10-21 17:35 | disposition home or self-care (01) ==
LOC: M ED 13:18 → M ED INP 17:32 → M MSPAV 20:50
PROVIDERS: ADMIT Internal Medicine; ATTEND Internal Medicine
DX: R55 Syncope and collapse (principal); S02.2XXA Fracture of nasal bones, initial encounter for closed fracture; W19.XXXA Unspecified fall, initial encounter; M25.561 Pain in right knee; Y92.89 Other specified places as the place of occurrence of the external cause; Y99.0 Civilian activity done for income or pay; F17.210 Nicotine dependence, cigarettes, uncomplicated; F10.10 Alcohol abuse, uncomplicated; Z79.01 Long term (current) use of anticoagulants; Z86.711 Personal history of pulmonary embolism; Z79.51 Long term (current) use of inhaled steroids; Z88.0 Allergy status to penicillin; Z88.1 Allergy status to other antibiotic agents
CPT/HCPCS: 36415; 70450; 70486; 71045; 71275; 72125; 80048; 80053; 81001; 82550; 82553; 84145; 84443; 84484; 85025; 85027; 85610; 85730; 87631; 93005; 93041; 93306; 93880; 94760; 97161; 97530; 99285; Q9967

== ENCOUNTER → 2023-02-03 | Outpatient (CLI) | payer BC ==
[~2023-02-03] MED LIST changes: +ACET1TAB55 PO; +ELIQ2.5T PO
[2023-02-03 18:13] LABS: BASO % 0.4 % (0.0-1.0); EOS # 0.2 10^3/uL (0.0-0.5); EOS % 1.9 % (0.0-3.0); HEMATOCRIT 46.2 % (36.0-47.0); HEMOGLOBIN 15.2 g/dl (12.0-15.5); LYMPH # 3.3 10^3/uL (1.5-5.0); LYMPH % 34.2 % (24.0-44.0); MEAN CORPUSCULAR HEMOGLOBIN 32.3 pg (27.0-33.0); MEAN CORPUSCULAR HGB CONC 32.9 g/dl (32.0-36.5); MEAN CORPUSCULAR VOLUME 98.3 fl (80.0-96.0); MONO # 0.7 10^3/uL (0.0-0.8); MONO % 7.3 % (2.0-8.0); NEUTROPHILS # 5.4 10^3/uL (1.5-8.5); PLATELET COUNT, AUTOMATED 260 10^3/uL (150-450); WHITE BLOOD COUNT 9.6 10^3/uL (4.0-10.0)
[2023-02-03 18:19] LABS: HEMOGLOBIN A1c 5.6 % (4.0-6.0)
[2023-02-03 18:36] LABS: ALBUMIN 4.1 G/DL (3.2-5.2); ALKALINE PHOSPHATASE 88 U/L (46-116); ALT/SGPT 18 U/L (7.0-40); AST/SGOT 13 U/L (<34); BILIRUBIN,TOTAL 0.3 MG/DL (0.3-1.2); BLOOD UREA NITROGEN 16 MG/DL (9-23); CALCIUM LEVEL 9.6 MG/DL (8.3-10.6); CARBON DIOXIDE LEVEL 28 MMOL/L (20-31); CHLORIDE LEVEL 103 MMOL/L (98-107); CREATININE FOR GFR 0.75 MG/DL (0.55-1.30); GLOMERULAR FILTRATION RATE > 60.0 (>45); GLUCOSE, FASTING 88 MG/DL (74-106); POTASSIUM SERUM 4.1 MMOL/L (3.5-5.1); SODIUM LEVEL 139 MMOL/L (136-145); TOTAL PROTEIN 6.7 G/DL (5.7-8.2)
[2023-02-03 18:39] LABS: FREE T4 1.01 NG/DL (0.89-1.76); THYROID STIMULATING HORMONE 3.252 uIU/ML (0.55-4.78)
== END ==
LOC: M LAB 16:53
PROVIDERS: ATTEND Family Medicine
DX: R00.2 Palpitations (principal); R55 Syncope and collapse

== ENCOUNTER → 2023-08-25 | Outpatient (REF) | LOC: M EMP 08:38 | PROVIDERS: ATTEND Family Medicine | DX: Z20.828 Contact with and (suspected) exposure to other viral communicable diseases (principal) ==

== ENCOUNTER → 2024-01-19 | Outpatient (REF) | LOC: M EMP 11:52 | PROVIDERS: ATTEND Family Medicine | DX: Z11.52 Encounter for screening for COVID-19 (principal) ==

== ENCOUNTER → 2025-05-07 | Outpatient (REF) | payer BC | LOC: M LAB REF 17:03 | PROVIDERS: ATTEND Physician Assistant Medical | DX: B34.9 Viral infection, unspecified (principal) ==

== ENCOUNTER → 2025-05-22 | Outpatient (REF) | LOC: M EMP 15:40 | PROVIDERS: ATTEND Family Medicine | DX: Z01.89 Encounter for other specified special examinations (principal) ==